=== PATIENT | female | born 1960 | race Caucasian/White ===

== ENCOUNTER → 2018-07-20 10:58 | Outpatient (CLI) | payer OTHER, SELFPAY ==
--- NOTE | 2018-07-20 | DI.MRI.S_ITS ---
PROCEDURE: MR HEAD/BRAIN WO CON INDICATIONS: MS TECHNIQUE: Noncontrast axial T1 spin echo, axial T2 fast spin echo, sagittal and axial FLAIR, coronal T2 fast spin echo, axial gradient echo, axial diffusion and ADC through the brain. COMPARISON: MR, BRAIN W/O CONTRAST, 12/22/2001, 10:56. [facility], MR, BRAIN WITHOUT CONTRAST, 05/21/2017, 12:03. FINDINGS: Image quality: Excellent. CSF Spaces: Basal cisterns are patent. No extra-axial fluid collections. Ventricles are normal in size and shape. Brain: Multiple areas of hyperintensity within the periventricular and subcortical white matter are identified. Overall, the appear unchanged in number. Several demonstrate minimal interval increases in size most notable in the right frontal lesion seen on series 7 image 21 currently measuring approximately 9 mm compared to 6 mm on prior exam. No intracranial masses or hemorrhage. Adair/white matter interface is normal. Brainstem appears normal. Diffusion-weighted images demonstrate no acute ischemic insult. No chronic ischemic insults. Normal intravascular flow voids are present. Skull and face: Calvarium has normal marrow signal. Orbits appear normal. Sinuses: Sinuses and mastoids are clear. IMPRESSION: 1. Multifocal periventricular hyperintensities as above with small interval increase in size as noted. Overall appearance remains most consistent with demyelinating disease. 2. Mild atrophy and chronic microvascular ischemic changes. Dictated by: Yulissa Riley M.D. on 07/20/2018 at 13:42 Approved by: Yulissa Riley M.D. on 07/20/2018 at 13:47
== END ==
PROVIDERS: PCP Specialist; Visit Provider Physician Assistant
DX: G35 Multiple sclerosis (principal)
CPT/HCPCS: 70551

== ENCOUNTER → 2019-08-19 07:51 | Outpatient (CLI) | payer OTHER, SELFPAY ==
--- NOTE | 2019-08-19 | DI.MRI.S_ITS ---
PROCEDURE: MR CERVICAL SPINE WO/W CON INDICATIONS: Multiple sclerosis TECHNIQUE: Noncontrast sagittal T1 spin echo and T2 fast spin echo, sagittal STIR, sagittal PD fast spin echo, foraminal oblique sagittal T2 fast spin echo, axial gradient echo or T2 fast spin echo through the cervical spine. After the administration of contrast, sagittal and axial T1 spin echo with fat saturation through the cervical spine. COMPARISON: [facility], , C-SPINE WITHOUT CONTRAST, 05/21/2017, 12:29. FINDINGS: Image quality: Excellent. Alignment and curvature: There is normal bony alignment. Marrow: Marrow demonstrates normal overall signal. Spinal cord: Visualized spinal cord is normal in size, but there is a pattern of being elevation of fluid signal in the cervical and visualized upper thoracic spine as was previously the case 05/21/17, consistent with extensive white matter lesions showing no evidence of focal enhancement on postcontrast imaging. . No cerebellar tonsillar herniation. Paraspinous soft tissues: No paravertebral masses or suspicious enhancement. C4-C5: Moderately severe degenerative disc disease with a chronic posterior transverse this would producing effacement of the anterior thecal sac, associated with mild to moderate spinal stenosis. C5-C6: Moderately severe degenerative disc disease with a small posterior transverse disc bulge. Only mild spinal stenosis is associated. C6-C7: Mild to moderate degenerative disc disease, slight posterior disc bulge,, minimal spinal stenosis. IMPRESSION: Relatively extensive white matter lesions are present within the cervical cord from the C2 level inferiorly extending into the thoracic cord, consistent with stable underlying multiple sclerosis. There is no associated abnormal enhancement, and no definite interval worsening has developed from the comparison study 05/21/17. Previously present moderate mid cervical degenerative disc disease extends into the lower third of the cervical spine, associated with mild to moderate spinal stenosis at C4-5 and no significant focal nerve root impingement is found.. Dictated by: Damian Du M.D. on 08/19/2019 at 14:36 Approved by: Damian Du M.D. on 08/19/2019 at 14:42
--- NOTE | 2019-08-19 | DI.MRI.S_ITS ---
PROCEDURE: MR HEAD/BRAIN WO CON INDICATIONS: Multiple sclerosis TECHNIQUE: Noncontrast sagittal and axial FLAIR, axial and coronal T2 fast spin echo, axial VIBE, axial gradient echo, axial diffusion and ADC through the brain. After the administration of contrast, axial and coronal VIBE with fat saturation through the brain. COMPARISON: [facility], MR, MR HEAD/BRAIN WO CON, 07/20/2018, 12:19. [facility], MR, BRAIN WITHOUT CONTRAST, 05/21/2017, 12:03. FINDINGS: Image quality: Excellent. CSF spaces: Ventricles are normal in size and shape. Basal cisterns are patent. No extra-axial fluid collections. Brain: No intracranial bleeds or mass effects. Adair-white matter interface appears intact. No no suspicious white matter lesions. Extensive gliosis related to multifocal periventricular and corpus callosal white matter lesions are present, a number of which are centripetal in their orientation. No mass effect is associated. No abnormal intracranial enhancement. Diffusion weighted images show no acute ischemic insults. Brainstem appears normal. Normal intravascular flow voids are present. Skull and face: Calvarial marrow signal is normal. Orbits appear normal. Sinuses: Sinuses and mastoids are clear. IMPRESSION: Stable appearance of multifocal bilateral presumed MS plaque in this clinical circumstance, without appreciable interval worsening over the prior year. Contrast enhancement was not utilized for this study. Dictated by: Damian Du M.D. on 08/19/2019 at 14:33 Approved by: Damian Du M.D. on 08/19/2019 at 14:36
== END ==
PROVIDERS: PCP Specialist; Visit Provider Psychiatry & Neurology Neurology
DX: G35 Multiple sclerosis (principal); M50.321 Other cervical disc degeneration at C4-C5 level; M48.02 Spinal stenosis, cervical region
CPT/HCPCS: 70551; 72156; A9579

== ENCOUNTER 2023-10-20 10:56 | Emergency (ER) | payer MEDICARE, SELFPAY ==
[2023-10-20 11:10] VITALS: BP 139/67; PULSE 90; RESP 18; TEMP 36.4; O2SAT 99; BMI 26.6
--- NOTE | 2023-10-20 11:16 | DI.RAD.S_ITS ---
PROCEDURE: XR ANKLE RT MIN 3V INDICATIONS: fall, ankle pain TECHNIQUE: 3 views of the ankle were acquired. COMPARISON: None. FINDINGS: Bones: There is slight prominence of the lateral mortise. No displaced fracture identified elsewhere. Heterogeneous demineralization and mild degenerative changes. Soft tissues: There may be soft tissue swelling. IMPRESSION: Possible slight prominence of the lateral mortise. No displaced fracture. If there is high concern for further derangement, consider MRI evaluation. Soft tissue swelling is present. Dictated by: Javier Serrano M.D. on 10/20/2023 at 11:59 Approved by: Javier Serrano M.D. on 10/20/2023 at 12:00
--- NOTE | 2023-10-20 11:55 | PC.NURSE ---
Pt is wheelchair bound x 9 years from MS. uses matt lift to get to toilet. states she fell off the toilet 4 days ago and hurt R ankle. Pain persisted and decided to come to ER. 2+ pedal pulse. Pt unable to move lower extremities at baseline however full sensation intact. mild swelling to lateral R malleolus and tender to touch. states she uses CBD oil for pain which has helped minimally. declined tylenol/ibu at this time.
--- NOTE | 2023-10-20 12:20 | ED.LOWEXIN ---
HPI - Extremity Injury (Lower) <Bambi Murry PA-C - Last Filed: 10/20/23 12:26> General Chief Complaint: Extremity Injury, Lower Stated Complaint: fall from toilet/ rolled ankle T-4 Time Seen by Provider: 10/20/23 11:47 Source: patient Mode of arrival: Wheelchair History of Present Illness HPI Narrative: Patient is a 63-year-old female with MS who uses a wheelchair and transfers using a lift. She is on Eliquis. She has recently moved to a new facility and is still becoming accustomed to the equipment and layout. She was attempting to shift her weight on the toilet when she actually fell off the toilet and rolled her right ankle. Did not hit her head. Complains of pain and swelling to the lateral aspect of the right ankle. It has not gotten better in the 4 days since. She has tried CBD oil without improvement in pain. Related Data Allergies Allergy/AdvReac Type Severity Reaction Status Date / Time iodine [IODINE] Allergy Intermediate HIVES Verified 10/20/23 11:10 Review of Systems <Bambi Murry PA-C - Last Filed: 10/20/23 12:26> Review of Systems ROS Unobtainable: All systems reviewed & are unremarkable except as noted in HPI and below Patient History <Bambi Murry PA-C - Last Filed: 10/20/23 12:26> Social History Smoking Status: Never smoker Smoking Status: Never smoker alcohol intake frequency: a few times a week Substance Use Type: marijuana Exam <Bambi Murry PA-C - Last Filed: 10/20/23 12:26> Narrative Exam Narrative: GENERAL: 63 year old patient appears stated age. Well-developed patient, in no acute distress. NEURO: AOx3. HEAD: Atraumatic. Normocephalic. EYES: Pupils equal round and reactive. Extraocular motions intact. No scleral icterus. No injection or drainage. ENT: Nose without bleeding or purulent drainage. Airway patent. RESPIRATORY: No distress or increased work of breathing EXTREMITIES: Mild edema of the right ankle. Tenderness over the lateral malleolus. SKIN: No rash or erythema of visible areas Initial Vital Signs Initial Vital Signs: Vital Signs Temperature 97.5 F L 10/20/23 11:10 Pulse Rate 90 10/20/23 11:10 Respiratory Rate 18 10/20/23 11:10 Blood Pressure 139/67 10/20/23 11:10 Pulse Oximetry 99 10/20/23 11:10 Oxygen Delivery Method Room Air 10/20/23 11:10 <Maty Sauer MD - Last Filed: 10/21/23 11:18> Initial Vital Signs Initial Vital Signs: Vital Signs Temperature 97.5 F L 10/20/23 11:10 Pulse Rate 90 10/20/23 11:10 Respiratory Rate 18 10/20/23 11:10 Blood Pressure 139/67 10/20/23 11:10 Pulse Oximetry 99 10/20/23 11:10 Oxygen Delivery Method Room Air 10/20/23 11:10 Course <Bambi Murry PA-C - Last Filed: 10/20/23 12:26> Orders Ordered: ED Orders 10/20/23 11:16 XR ankle RT min 3V Stat Vital Signs Vital signs: Vital Signs - 8 hr 10/20/23 11:10 Temperature 97.5 F L Pulse Rate 90 Respiratory Rate 18 Blood Pressure 139/67 Pulse Oximetry 99 Oxygen Delivery Method Room Air <Maty Sauer MD - Last Filed: 10/21/23 11:18> Orders Ordered: ED Orders 10/20/23 11:16 XR ankle RT min 3V Stat Vital Signs Vital signs: Vital Signs - 8 hr 10/20/23 11:10 Temperature 97.5 F L Pulse Rate 90 Respiratory Rate 18 Blood Pressure 139/67 Pulse Oximetry 99 Oxygen Delivery Method Room Air MDM - Extremity Injury (Lower) <Bambi Murry PA-C - Last Filed: 10/20/23 12:26> Imaging Data Extremity x-ray #1: Radiologist's Impression: PROCEDURE: XR ANKLE RT MIN 3V INDICATIONS: fall, ankle pain TECHNIQUE: 3 views of the ankle were acquired. COMPARISON: None. FINDINGS: Bones: There is slight prominence of the lateral mortise. No displaced fracture identified elsewhere. Heterogeneous demineralization and mild degenerative changes. Soft tissues: There may be soft tissue swelling. IMPRESSION: Possible slight prominence of the lateral mortise. No displaced fracture. If there is high concern for further derangement, consider MRI evaluation. Soft tissue swelling is present. Dictated by: Javier Serrano M.D. on 10/20/2023 at 11:59 Approved by: Javier Serrano M.D. on 10/20/2023 at 12:00 [facility] Narrative Medical decision making narrative: Multiple etiologies for patient's symptoms considered including, but not limited to: Ankle sprain, fracture, dislocation Patient is nonweightbearing, uses a wheelchair and Xuan lift due to MS. She would tenderness over her lateral right ankle after a fall from the toilet 4 days ago. She did not hit her head. X-ray shows slight increased prominence of the lateral mortise without obvious fracture or dislocation. Discussed findings with the patient. Given that she does not weight bear, we will defer further imaging or investigation after a trial of conservative therapy. Advised ice, rest, elevation, Tylenol. Offered compression bandage but patient declines, stating this will just irritate her. She has been most of her time lying in bed and can keep elevated. She can follow up with primary care if not improving after 2 weeks of conservative therapy. Patient's symptoms improved over duration of stay with above-stated therapies. Findings and discharge diagnosis discussed with patient/family followed by verbalization of understanding Return precautions discussed with patient/family whom verbalize understanding of diagnosis and plan Discharge Plan Departure Patient Disposition: Home Clinical Impression: Ankle sprain and strain Instructions: DI for Ankle Sprain Activity Restrictions/Additional Instructions: *You have been diagnosed with right ankle sprain. There is no evidence of fracture on your x-ray. I would advise rest, elevation, ice. If your ankle is not improving after 1-2 weeks of conservative therapy, please contact your primary care provider for reassessment. We discussed using an Rojas wrap to provide some support but given that you do not bear weight on the leg, is also fine to not ice it. If you are having ongoing pain, you could try using an Rojas wrap or another kind of brace. *What to do: *Please continue to take your regular medications as directed. [ ] New medication prescriptions sent to your pharmacy: [ ] [ ] New medication written as a paper prescription [x] No new medications given *Please follow up with your primary care provider in 2-3 days, call for an appointment. Let them know you were seen in the Emergency Department and that we ask that you be seen in follow up. We will electronically transmit a record of today's note if your PCP is in our system *If you do not have a primary care provider please contact the [facility] Resource line at [phone]. They will ask some questions about your medical history and help get you set up with a doctor in the community. *Return to Emergency Department if you should have any new, worsening or concerning symptoms, such as [fever greater than 101 F, shaking chills, worsening pain, persistent vomiting or other concerning symptoms]. Referrals: Ian Gooden FNP-C [Primary Care Provider] - Stand Alone Forms: Patient Portal/API ED Sign-out <Maty Sauer MD - Last Filed: 10/21/23 11:18> Cosign ED Attending Cosignature Attestation: I was immediately available in the department for consultation throughout this patient's visit. Maty Sauer MD
== END 2023-10-20 12:23 | disposition home or self-care (01) ==
PROVIDERS: Emergency Provider Physician Assistant; PCP Nurse Practitioner
DX: S93.401A Sprain of unspecified ligament of right ankle, initial encounter (principal); S96.911A Strain of unspecified muscle and tendon at ankle and foot level, right foot, initial encounter; I05.0 Rheumatic mitral stenosis; W18.11XA Fall from or off toilet without subsequent striking against object, initial encounter
CPT/HCPCS: 73610; 99283

== ENCOUNTER → 2023-11-05 10:21 | Outpatient (CLI) | payer MEDICARE, SELFPAY ==
--- NOTE | 2023-11-05 10:26 | DI.RAD.S_ITS ---
PROCEDURE: XR TIBIA FUBULA RT 2V INDICATIONS: LEG INJURY TECHNIQUE: 2 views of the tibia and fibula were acquired. COMPARISON: None. FINDINGS: Bones: Comminuted, displaced fracture involving the proximal right tibial diametaphysis with medial angulation of the distal fracture fragment. There is also a mildly displaced fracture involving the head of the right fibula. Soft tissues: No suspicious soft tissue calcifications or masses. IMPRESSION: Comminuted, displaced fracture of the proximal right tibial diametaphysis. Mildly displaced fracture of the right fibular head. Dictated by: Kaveh Ring M.D. on 11/05/2023 at 14:08 Approved by: Kaveh Ring M.D. on 11/05/2023 at 14:09
== END ==
LOC: RAD 10:22
PROVIDERS: PCP Nurse Practitioner; Referring Provider Nurse Practitioner; Visit Provider Nurse Practitioner
DX: S82.191A Other fracture of upper end of right tibia, initial encounter for closed fracture (principal); S82.831A Other fracture of upper and lower end of right fibula, initial encounter for closed fracture; X58.XXXA Exposure to other specified factors, initial encounter
CPT/HCPCS: 73590

== ENCOUNTER 2023-11-09 10:33 | Emergency (ER) | payer MEDICARE, SELFPAY ==
[2023-11-09] VITALS (7 sets, daily range): BP systolic 164–178; BP diastolic 77–88; PULSE 64–77; RESP 16–20; TEMP 36.3; O2SAT 98–100; BMI 28.6
--- NOTE | 2023-11-09 11:06 | PC.NURSE ---
Pt reports initially falling in September and twisting her right foot underneath herself. She is taking marijuana to control her pain, reports minimal pain today 2/10 right calf through right lateral ankle. Pedal pulse palpable, no lacerations/ecchymosis. There is swelling. Pt in a W/C due to MS.
--- NOTE | 2023-11-09 11:51 | DI.US.S_ITS ---
PROCEDURE: US PERIPH VENOUS LOW EXTREM RT INDICATIONS: EDEMA TECHNIQUE: Real-time imaging, as well as color and pulse Doppler interrogation, were performed of the lower extremity deep veins from the inguinal ligament to the popliteal fossa, with documentation of the visualized calf veins. COMPARISON: None. FINDINGS: The common femoral, femoral, popliteal, and the visualized calf veins are normally compressible, and free of intraluminal thrombus. Color and pulse Doppler demonstrate normal phasic intraluminal flow. There is normal augmentation response to distal compression maneuver. IMPRESSION: No findings of lower extremity deep venous thrombosis. Dictated by: Romie Collins M.D. on 11/09/2023 at 13:27 Approved by: Romie Collins M.D. on 11/09/2023 at 13:27
--- NOTE | 2023-11-09 12:08 | ED.RECABL ---
HPI - Recheck/Abnormal Lab/Rx <Emilia Sloan PA-C - Last Filed: 11/09/23 15:05> General Chief Complaint: Recheck/Abnormal Lab/Rx Stated Complaint: needs a boot commuted displaced sent by pcp Time Seen by Provider: 11/09/23 11:31 Source: patient Mode of arrival: Wheelchair History of Present Illness HPI narrative: 63-year-old female with past medical history multiple sclerosis, pulmonary embolism presents to the ED with right-sided leg pain. Patient was seen in the ED on 10/20/2023 following a fall from the toilet that caused a right ankle injury, ankle x-ray did not show fractures or dislocations, patient discharged home. Patient continued to have right-sided leg pain ranging from her knee on down. A tib-fib x-ray from 11/05/2023 that was ordered by patient's PCP shows a comminuted, displaced fracture of the proximal right tibial diametaphysis. Mildly displaced fracture of the right fibular head. patient is here today due to continued pain in the right leg. Denies numbness, tingling, weakness. However, patient's sensations are somewhat distorted from the multiple sclerosis. Patient is wheelchair-bound at baseline due to multiple sclerosis. Patient lives at [facility] living across the street from the ED. Related Data Allergies Allergy/AdvReac Type Severity Reaction Status Date / Time iodine [IODINE] Allergy Intermediate HIVES Verified 11/09/23 10:50 Review of Systems <Emilia Sloan PA-C - Last Filed: 11/09/23 15:05> Constitutional Constitutional: Denies chills, Denies fatigue, Denies fever(s), Denies frequent falls, Denies lethargy and Denies weakness Eyes Eyes: Denies change in vision, Denies eye discharge, Denies irritation and Denies loss of vision ENT Ears, Nose, Mouth, and Throat: Denies change in voice, Denies dizziness, Denies neck pain, Denies sore throat and Denies throat swelling Cardiovascular Cardiovascular: Denies chest pain, Denies irregular heart rhythm, Denies lightheadedness, Denies palpitations, Denies dyspnea, Denies dyspnea on exertion and Denies orthopnea Respiratory Respiratory: Denies cough, Denies dyspnea, Denies dyspnea on exertion and Denies wheezing Gastrointestinal Gastrointestinal: Denies abdominal pain, Denies change in bowel habits, Denies diarrhea, Denies nausea and Denies vomiting Musculoskeletal Musculoskeletal: Denies neck pain and Denies numbness Comments: Right leg pain Integumentary/Breasts Skin/Breast: Denies pruritus, Denies erythema, Denies rash and Denies wounds Neurologic Neurologic: Denies behavioral changes, Denies confusion, Denies dizziness, Denies frequent falls, Denies loss of vision, Denies numbness and Denies weakness Psychiatric Psychiatric: Denies anxiety, Denies behavioral changes, Denies confusion, Denies depression, Denies homicidal ideation and Denies suicidal ideation Endocrine Endocrine: Denies fatigue, Denies flushing and Denies palpitations Hematologic/Lymphatic Hematologic/Lymphatic: Denies easy bruising Allergic/Immunologic Allergic/Immunologic: Denies urticaria, Denies throat swelling and Denies wheezing Patient History <Emilia Sloan PA-C - Last Filed: 11/09/23 15:05> Social History Smoking Status: Never smoker Smoking Status: Never smoker alcohol intake frequency: a few times a week Substance Use Type: marijuana Exam <Emilia Sloan PA-C - Last Filed: 11/09/23 15:05> Narrative Exam Narrative: Const General:?cooperative, healthy appearing and comfortable;Patient is wheelchair-bound due to multiple sclerosis HENMT Head:?normal to inspection Ears:?hearing grossly normal bilaterally Nose:?external nose normal Face and sinus:?normal facial exam and sinuses nontender Mouth:?oral mucosae normal Throat:?posterior oropharynx normal Eyes General:?appearance normal, both eyes and all related structures Neck Neck:?normal visual inspection and no lymphadenopathy noted Resp Effort & Inspection:?normal respiratory effort Auscultation:?clear to auscultation bilaterally Cardio Rate:?regular rate Rhythm:?regular rhythm Musculoskeletal Diffuse tenderness to palpation of the right lower leg. Minimal swelling. Neurovascularly at baseline given MS. Patient is wheelchair-bound at baseline. Neuro General:?patient alert, patient awake and patient oriented x3 Initial Vital Signs Initial Vital Signs: Vital Signs Pulse Rate 70 11/09/23 10:47 Pulse Oximetry 100 11/09/23 10:47 <Xena Boykin DO - Last Filed: 11/09/23 18:21> Initial Vital Signs Initial Vital Signs: Vital Signs Pulse Rate 70 11/09/23 10:47 Pulse Oximetry 100 11/09/23 10:47 Course <Emilia Sloan PA-C - Last Filed: 11/09/23 15:05> Orders Ordered: ED Orders 11/09/23 11:51 US periph venous low extrem rt Stat Discontinued Medications Ibuprofen (Ibuprofen 400 Mg Tablet) 800 mg PO NOW ONE Stop: 11/09/23 11:52 Last Admin: 11/09/23 12:43 Dose: 800 mg Documented By: SPF Vital Signs Vital signs: Vital Signs - 8 hr 11/09/23 10:47 11/09/23 10:48 11/09/23 10:48 Temperature 97.3 F L Pulse Rate 70 68 69 Respiratory Rate 16 Blood Pressure 178/88 H Pulse Oximetry 100 100 99 Oxygen Delivery Method Room Air 11/09/23 10:48 11/09/23 11:00 11/09/23 11:30 Temperature Pulse Rate 64 68 Respiratory Rate Blood Pressure 178/88 H Pulse Oximetry 99 98 Oxygen Delivery Method 11/09/23 12:00 11/09/23 12:30 11/09/23 14:07 Temperature Pulse Rate 65 77 74 Respiratory Rate 20 Blood Pressure 164/77 H Pulse Oximetry 98 98 99 Oxygen Delivery Method Room Air Room Air Room Air <Xena Boykin DO - Last Filed: 11/09/23 18:21> Orders Ordered: ED Orders 11/09/23 11:51 US periph venous low extrem rt Stat Discontinued Medications Ibuprofen (Ibuprofen 400 Mg Tablet) 800 mg PO NOW ONE Stop: 11/09/23 11:52 Last Admin: 11/09/23 12:43 Dose: 800 mg Documented By: SPF Vital Signs Vital signs: Vital Signs - 8 hr 11/09/23 10:47 11/09/23 10:48 11/09/23 10:48 Temperature 97.3 F L Pulse Rate 70 68 69 Respiratory Rate 16 Blood Pressure 178/88 H Pulse Oximetry 100 100 99 Oxygen Delivery Method Room Air 11/09/23 10:48 11/09/23 11:00 11/09/23 11:30 Temperature Pulse Rate 64 68 Respiratory Rate Blood Pressure 178/88 H Pulse Oximetry 99 98 Oxygen Delivery Method 11/09/23 12:00 11/09/23 12:30 11/09/23 14:07 Temperature Pulse Rate 65 77 74 Respiratory Rate 20 Blood Pressure 164/77 H Pulse Oximetry 98 98 99 Oxygen Delivery Method Room Air Room Air Room Air MDM - Recheck/Abnormal Lab/Rx <Emilia Sloan PA-C - Last Filed: 11/09/23 15:05> MDM Narrative Medical decision making narrative: 63-year-old female with past medical history multiple sclerosis, pulmonary embolism presents to the ED with right-sided leg pain. Given patient's fractures, consulted ortho specialist Dr. Shaw from [facility]. He recommends a knee immobilizer until patient can see him in clinic on 11/12/2023. Discussed findings with patient. Recommend continued use of ibuprofen for pain. Fitted patient with a knee immobilizer. She agrees to see Dr. Shaw on the . ED return precautions discussed with patient. Patient verbalized understanding. Medical records reviewed: Yes Discharge Plan Departure Patient Disposition: Home Clinical Impression: Fracture, tibia and fibula, proximal Qualifiers: Encounter type: subsequent encounter Fracture type: closed Laterality: right Fracture healing: with nonunion Qualified Code(s): S82.101K - Unspecified fracture of upper end of right tibia, subsequent encounter for closed fracture with nonunion Instructions: Fibula Shaft Fracture Activity Restrictions/Additional Instructions: You were evaluated in the ED today for leg pain. It appears from the most recent x-ray which was 4 days ago, that you have a comminuted fracture of the tibia and fibula in the right leg. We consulted Dr. Shaw from [facility], he recommends a knee immobilizer until you can see him in clinic on 11/12/2023. Their phone number is [phone] and their address is [address] [place] [address]. Return to the ED if you have worsening symptoms, numbness, tingling, weakness. You may continue to take ibuprofen and Tylenol for pain control. Referrals: Ian Gooden FNP-C [Primary Care Provider] - Stand Alone Forms: Patient Portal/API ED Sign-out <Xena Boykin DO - Last Filed: 11/09/23 18:21> Cosign ED Attending Cosignature Attestation: I was immediately available in the department for consultation. Case was discussed, images were reviewed consultation with Orthopedic surgery patient has fracture likely for several weeks. Plan for knee immobilizer which patient felt much more comfortable with and follow up with Orthopedic surgery.
[2023-11-09] MEDS: IBUPROFEN 400 MG TABLET 800 MG PO (12:43)
== END 2023-11-09 14:23 | disposition home or self-care (01) ==
PROVIDERS: Emergency Provider Student in an Organized Health Care Education/Training Program; PCP Nurse Practitioner
DX: S82.191A Other fracture of upper end of right tibia, initial encounter for closed fracture (principal); S82.831A Other fracture of upper and lower end of right fibula, initial encounter for closed fracture; W18.11XA Fall from or off toilet without subsequent striking against object, initial encounter
CPT/HCPCS: 29530; 93971; 99283; 99284

== ENCOUNTER → 2023-11-11 06:11 | Outpatient (ROUT) | payer MEDICARE, SELFPAY ==
[2023-11-11 08:12] LABS: Cholesterol 168 mg/dL (140-199); HDL Cholesterol 49 mg/dL (40-60); LDL Cholesterol Calculated 103 mg/dL (<100); Triglycerides 80 mg/dL (35-150)
== END ==
PROVIDERS: PCP Nurse Practitioner; Visit Provider Nurse Practitioner
DX: I10 Essential (primary) hypertension (principal)
CPT/HCPCS: 36415; 80061

== ENCOUNTER → 2024-01-20 11:23 | Outpatient (ROUT) | payer MEDICARE, SELFPAY ==
[2024-01-20 11:38] LABS: Appearance Urine UA SL CLOUDY; Bilirubin Urine UA NEGATIVE (NEGATIVE); Color Urine UA YELLOW; Glucose Urine UA NEGATIVE (Negative); Ketones Urine UA NEGATIVE (NEGATIVE); Leukocyte Esterase Urine UA 1+ (NEGATIVE); Nitrite Urine UA POSITIVE (Negative); Occult Blood Urine UA NEGATIVE (Negative); Protein Urine UA NEGATIVE (Negative); Urobilinogen Urine UA 0.2 E.U./dL (0.2)
[2024-01-20 11:40] LABS: Urine Volume 10mL (spun); pH Urine UA 6.5 (4.5-8.0)
[2024-01-20 12:21] LABS: Bacteria Urine Many (>30); Culture Indicated Urine Specimen Cultured; RBC Urine None Seen (0-5/HPF); Squamous Epithelial Cell Urine 5-10 /HPF (0-5/HPF); WBC Urine 5-10/HPF (0-5/HPF)
== END ==
PROVIDERS: PCP Nurse Practitioner; Visit Provider Internal Medicine
DX: M62.3 Immobility syndrome (paraplegic) (principal); M62.81 Muscle weakness (generalized)
CPT/HCPCS: 81001; 87077; 87086; 87186

== ENCOUNTER → 2024-03-23 06:06 | Outpatient (ROUT) | payer MEDICARE, SELFPAY ==
[2024-03-23 07:43] LABS: BUN Creatinine Ratio 21.7 (6-22); Blood Urea Nitrogen 15 mg/dL (7-17); Calcium 9.9 mg/dL (8.4-10.2); Carbon Dioxide 24 mmol/L (22-32); Chloride 109 mmol/L (98-107); Estimated Glomerular Filt Rate > 60 mL/min (>60); Glucose 99 mg/dL (80-110); HEMOLYSIS < 15 (0-50); Magnesium 2.1 mg/dL (1.6-2.3); Potassium 4.7 mmol/L (3.4-5.1); Sodium 139 mmol/L (137-145)
[2024-03-23 07:53] LABS: Hematocrit 40.6 % (36-46); Hemoglobin 13.5 g/dL (12.0-16.0); Mean Corpuscular HGB Conc 33.4 % (30-36); Mean Corpuscular Hemoglobin 30.1 PG (26-34); Mean Corpuscular Volume 90.3 fL (80-100); Platelet Count 199 X10^3/uL (150-400); Red Cell Distribution Width 14.7 % (11.6-14.8); White Blood Cell Count 6.6 X10^3/uL (4.5-11.0)
== END ==
PROVIDERS: PCP Nurse Practitioner; Visit Provider Registered Nurse
DX: R25.2 Cramp and spasm (principal)
CPT/HCPCS: 36415; 80048; 83735; 85027

== ENCOUNTER → 2024-08-25 06:10 | Outpatient (ROUT) | payer SELFPAY ==
[2024-08-25 07:25] LABS: BUN Creatinine Ratio 17.3 (6-22); Blood Urea Nitrogen 13 mg/dL (7-17); Calcium 10.6 mg/dL (8.4-10.2); Carbon Dioxide 26 mmol/L (22-32); Chloride 105 mmol/L (98-107); Estimated Glomerular Filt Rate > 60 mL/min (>60); Glucose 117 mg/dL (80-110); HEMOLYSIS < 15 (0-50); Magnesium 1.8 mg/dL (1.6-2.3); Sodium 135 mmol/L (137-145)
== END ==
PROVIDERS: PCP Nurse Practitioner; Visit Provider Registered Nurse
DX: I10 Essential (primary) hypertension (principal)
CPT/HCPCS: 36415; 80048; 83735

== ENCOUNTER → 2024-09-07 12:03 | Outpatient (CLI) | payer MEDICARE, OTHER, SELFPAY ==
--- NOTE | 2024-09-07 | DI.MG.S_ITS ---
BILATERAL DIGITAL SCREENING MAMMOGRAM 3D/2D WITH CAD: 09/07/2024 CLINICAL: Routine screening. Comparison is made to exams dated: 04/27/2018 mammogram and 12/23/2016 mammogram - [facility]. The breasts are almost entirely fatty (category a/<25% glandular tissue). Current study was also evaluated with a Computer Aided Detection (CAD) system. No significant masses, calcifications, or other findings are seen in either breast. There has been no significant interval change. IMPRESSION: NEGATIVE There is no mammographic evidence of malignancy. A 1 year screening mammogram is recommended. Based on the Tyrer Cuzick model (a risk assessment model) the patient's lifetime risk is 3.6% and her 10 year risk is 1.7%. According to the ACR, ACS, and NCCN guidelines, an annual breast MRI exam along with mammogram is recommended if the patient's lifetime risk is 20% or greater. This exam was interpreted at Station ID: [id number]. NOTE: For mammograms, a report in lay terms will be sent to the patient. Approximately 15% of breast malignancies will not be visualized mammographically. In the management of a palpable breast mass, a negative mammogram must not discourage biopsy of a clinically suspicious lesion. Electronically Signed By: Shelby king/aicha:09/07/2024 16:23:27 letter sent: Normal Exam ACR BI-RADS Category 1: Negative
== END ==
LOC: MAMMO 12:06
PROVIDERS: PCP Nurse Practitioner; Referring Provider Nurse Practitioner; Visit Provider Nurse Practitioner
DX: Z12.31 Encounter for screening mammogram for malignant neoplasm of breast (principal); R92.313 Mammographic fatty tissue density, bilateral breasts
CPT/HCPCS: 77063; 77067

== ENCOUNTER → 2024-10-31 10:54 | Outpatient (ROUT) | payer MEDICARE, OTHER, SELFPAY ==
[2024-10-31 11:32] LABS: Appearance Urine UA CLOUDY; Bilirubin Urine UA NEGATIVE (NEGATIVE); Color Urine UA YELLOW; Glucose Urine UA NEGATIVE (Negative); Ketones Urine UA NEGATIVE (NEGATIVE); Leukocyte Esterase Urine UA 2+ (NEGATIVE); Nitrite Urine UA POSITIVE (Negative); Occult Blood Urine UA NEGATIVE (Negative); Protein Urine UA NEGATIVE (Negative); Urobilinogen Urine UA 0.2 E.U./dL (0.2)
[2024-10-31 11:36] LABS: Urine Volume 10mL (spun)
[2024-10-31 11:37] LABS: Bacteria Urine Many (>30); Culture Indicated Urine Specimen Cultured; RBC Urine None Seen (0-5/HPF); Squamous Epithelial Cell Urine 1-5 /HPF (0-5/HPF); WBC Urine 5-10/HPF (0-5/HPF)
== END ==
PROVIDERS: PCP Nurse Practitioner; Visit Provider Registered Nurse
DX: R35.0 Frequency of micturition (principal)
CPT/HCPCS: 81001; 87077; 87086

== ENCOUNTER → 2024-12-21 06:24 | Outpatient (ROUT) | payer MEDICARE, OTHER, SELFPAY ==
[2024-12-21 08:21] LABS: Hematocrit 39.7 % (36-46); Hemoglobin 13.5 g/dL (12.0-16.0); Mean Corpuscular HGB Conc 34.1 % (30-36); Mean Corpuscular Hemoglobin 30.5 PG (26-34); Mean Corpuscular Volume 89.4 fL (80-100); Platelet Count 268 X10^3/uL (150-400); Red Blood Cell Count 4.44 X10^6/uL (4.0-5.2); Red Cell Distribution Width 14.2 % (11.6-14.8); White Blood Cell Count 8.7 X10^3/uL (4.5-11.0)
[2024-12-21 08:36] LABS: BUN Creatinine Ratio 14.9 (6-22); Blood Urea Nitrogen 11 mg/dL (7-17); Calcium 10.2 mg/dL (8.4-10.2); Carbon Dioxide 25 mmol/L (22-32); Chloride 104 mmol/L (98-107); Cholesterol 179 mg/dL (140-199); Estimated Glomerular Filt Rate > 60 mL/min (>60); Glucose 105 mg/dL (70-99); HDL Cholesterol 33 mg/dL (40-60); HEMOLYSIS < 15 (0-50); LDL Cholesterol Calculated 126 mg/dL (<100); Sodium 137 mmol/L (137-145); Triglycerides 102 mg/dL (35-150)
== END ==
PROVIDERS: PCP Nurse Practitioner; Visit Provider Registered Nurse
DX: I10 Essential (primary) hypertension (principal); R06.9 Unspecified abnormalities of breathing; Z86.718 Personal history of other venous thrombosis and embolism
CPT/HCPCS: 36415; 80048; 80061; 85027

== ENCOUNTER → 2024-12-28 12:20 | Outpatient (ROUT) | payer MEDICARE, OTHER, SELFPAY ==
[2024-12-28 12:34] LABS: Appearance Urine UA SL CLOUDY; Bilirubin Urine UA NEGATIVE (NEGATIVE); Color Urine UA YELLOW; Glucose Urine UA NEGATIVE (Negative); Ketones Urine UA NEGATIVE (NEGATIVE); Leukocyte Esterase Urine UA 3+ (NEGATIVE); Nitrite Urine UA NEGATIVE (Negative); Occult Blood Urine UA NEGATIVE (Negative); Protein Urine UA NEGATIVE (Negative); Specific Gravity Urine UA <=1.005 (1.000-1.035); Urobilinogen Urine UA 0.2 E.U./dL (0.2)
[2024-12-28 12:36] LABS: Urine Volume 10mL (spun)
[2024-12-28 12:38] LABS: RBC Urine None Seen (0-5/HPF)
[2024-12-28 12:39] LABS: Bacteria Urine None Seen; Culture Indicated Urine Specimen Cultured; Squamous Epithelial Cell Urine 1-5 /HPF (0-5/HPF); WBC Urine 10-30/HPF (0-5/HPF)
== END ==
LOC: LAB 12:23
PROVIDERS: PCP Nurse Practitioner; Visit Provider Student in an Organized Health Care Education/Training Program
DX: N39.0 Urinary tract infection, site not specified (principal)
CPT/HCPCS: 81001; 87077; 87086; 87186

== ENCOUNTER 2024-12-31 22:16 | Emergency (ER) | payer MEDICARE, OTHER, SELFPAY ==
--- NOTE | 2024-12-31 22:22 | EKG_ITS ---
[address] [address] Test Date: 2024-12-31 Pat Name: Marquita Duong Department: [facility] Room: Gender: Female Assistant [employer]: : 1960 Requested By: Order Number: [id number] Reading MD: Derrek Castillo MD Measurements Intervals [place] Rate: 122 P: 55 IA: 142 QRS: 44 QRSD: 80 T: 48 QT: 326 QTc: 464 Interpretive Statements Sinus tachycardia Electronically Signed On 01-01-2025 8:43:33 PDT by Derrek Castillo MD
[2024-12-31 22:24] VITALS: BP 170/79; PULSE 121; RESP 16; TEMP 37.2; O2SAT 97; BMI 33.0
[2024-12-31 22:25] VITALS: PULSE 122; O2SAT 91
[2024-12-31 22:27] VITALS: BP 168/74; PULSE 121; RESP 18; O2SAT 91
[2024-12-31 22:30] VITALS: BP 158/70; PULSE 121; RESP 16; O2SAT 91
[2024-12-31] MEDS: SODIUM CHLORIDE 0.9% 1,000 ML 1000 ML IV ×2 (22:41→23:21)
[2024-12-31 22:50] LABS: Add Manual Diff / Slide Review NO; Basophils Absolute Auto 100 /uL (0-100); Basophils Percent Auto 0.3 % (0-2); Eosinophils Absolute Auto 0 /uL (0-450); Eosinophils Percent Auto 0.1 % (2-4); Hematocrit 45.3 % (36-46); Hemoglobin 15.1 g/dL (12.0-16.0); Lymphocytes Absolute Auto 300 /uL (1100-4500); Lymphocytes Percent Auto 1.7 % (25-40); Mean Corpuscular HGB Conc 33.3 % (30-36); Mean Corpuscular Hemoglobin 29.9 PG (26-34); Mean Corpuscular Volume 89.8 fL (80-100); Monocytes Absolute Auto 300 /uL (0-900); Monocytes Percent Auto 1.8 % (3-14); Neutrophils Absolute Auto 18300 /uL (1500-7000); Neutrophils Percent Auto 96.1 % (50-75); Platelet Count 400 X10^3/uL (150-400); Red Blood Cell Count 5.05 X10^6/uL (4.0-5.2); Red Cell Distribution Width 14.5 % (11.6-14.8)
[2024-12-31 22:52] LABS: Alanine Aminotransferase 39 IU/L (<35); Albumin 4.2 g/dL (3.5-5.0); Albumin Globulin Ratio 1.3 (1.0-2.8); Alkaline Phosphatase 107 U/L (38-126); Aspartate Aminotransferase 31 IU/L (14-36); BUN Creatinine Ratio 12.3 (6-22); Bilirubin Total 0.7 mg/dL (0.2-1.3); Blood Urea Nitrogen 8 mg/dL (7-17); Calcium 10.3 mg/dL (8.4-10.2); Carbon Dioxide 24 mmol/L (22-32); Chloride 104 mmol/L (98-107); Creatine Kinase 25 U/L (30-135); Estimated Glomerular Filt Rate > 60 mL/min (>60); Globulin 3.3 g/dL (1.7-4.1); Glucose 165 mg/dL (70-99); HEMOLYSIS < 15 (0-50); Potassium 3.9 mmol/L (3.4-5.1); Sodium 136 mmol/L (137-145); Total Protein 7.5 g/dL (6.3-8.2)
[2024-12-31 22:53] LABS: Lactate (Lactic Acid) 1.3 mmol/L (0.7-2.1)
--- NOTE | 2024-12-31 22:56 | ED.GENADULT ---
HPI - General Adult General Chief complaint: Weakness Stated complaint: N/V weakness Time Seen by Provider: 12/31/24 22:35 Source: patient and EMS Mode of arrival: EMS History of Present Illness HPI narrative: 64-year-old female, resident of [facility], has had prior urinary infections, prior kidney stones, now day 2 oral nitrofurantoin antibiotic for recent diagnosis of urinary tract infection from a clinic visit a few days ago with primary care provider, urine culture apparently was positive, then prescription was called in, she is now on her 2nd day of nitrofurantoin. She is having nausea and nonbloody emesis. No abdominal pain or flank pain. She denies cough chest pain shortness of breath. Related Data Previous Rx's Medication Instructions Recorded cefdinir 300 mg capsule 300 mg PO BID 10 days #20 caps 01/01/25 cefdinir 300 mg capsule 300 mg PO BID 10 days #20 caps 01/01/25 Allergies Allergy/AdvReac Type Severity Reaction Status Date / Time iodine [IODINE] Allergy Intermediate HIVES Verified 11/09/23 10:50 Patient History Social History Smoking Status: Never smoker Smoking Status: Never smoker alcohol intake frequency: a few times a week Exam Narrative Exam Narrative: GENERAL: Well-developed patient, in mild distress. HEAD: Atraumatic. Normocephalic. EYES: Pupils equal round and reactive. Extraocular motions intact. No scleral icterus. No injection or drainage. ENT: Nose without bleeding, purulent drainage. Throat without erythema, tonsillar hypertrophy or exudate. Airway patent. NECK: Trachea midline. Non tender CARDIOVASCULAR: Regular rate and rhythm without murmurs, gallops, or rubs. RESPIRATORY: Clear to auscultation. Breath sounds equal bilaterally. No wheezes, rales, or rhonchi. GASTROINTESTINAL: Abdomen soft, non-tender, nondistended. EXTREMITIES: No edema or joint tenderness. BACK: Nontender without deformity or crepitance. No flank tenderness. NEURO: AOx3. Motor functions grossly nonfocal SKIN: No rash or erythema of visible areas Initial Vital Signs Initial Vital Signs: Vital Signs Temperature 99 F 12/31/24 22:24 Pulse Rate 121 H 12/31/24 22:24 Respiratory Rate 16 12/31/24 22:24 Blood Pressure 170/79 H 12/31/24 22:24 Pulse Oximetry 97 12/31/24 22:24 Oxygen Delivery Method Room Air 12/31/24 22:24 Course Orders Ordered: ED Orders 12/31/24 22:15 Complete Blood Count AUTO DIFF Stat Comprehensive Metabolic Panel Stat Lactate (Lactic Acid) Stat Procalcitonin Stat Troponin & CK Cardiac Panel Stat 12/31/24 22:22 EKG-12 Lead Stat 12/31/24 22:40 Urine Culture Stat Urine Microscopic Stat 12/31/24 23:01 CT abdomen pelvis wo con Stat Discontinued Medications Sodium Chloride (Normal Saline 0.9%) 1,000 mls @ 1,000 mls/hr IV BOLUS ONE Stop: 12/31/24 23:34 Last Infusion: 12/31/24 23:21 Dose: Infused Documented By: Admin: 12/31/24 22:41 Dose: 1,000 mls/hr Documented By: NEETA Sodium Chloride (Normal Saline 0.9%) 1,000 mls @ 1,000 mls/hr IV BOLUS ONE Stop: 01/01/25 00:01 Last Infusion: 01/01/25 00:50 Dose: Infused Documented By: Admin: 12/31/24 23:21 Dose: 1,000 mls/hr Documented By: NEETA Ceftriaxone Sodium 1,000 mg/ (Sodium Chloride) 100 mls @ 200 mls/hr IV NOW ONE Stop: 12/31/24 23:07 Last Infusion: 12/31/24 23:42 Dose: Infused Documented By: Admin: 12/31/24 23:15 Dose: 200 mls/hr Documented By: NEETA Sodium Chloride (Normal Saline 0.9%) 1,000 mls @ 1,000 mls/hr IV BOLUS ONE Stop: 01/01/25 01:38 Last Infusion: 01/01/25 01:56 Dose: Infused Documented By: Admin: 01/01/25 00:50 Dose: 1,000 mls/hr Documented By: NEETA Ondansetron HCl (Ondansetron 4 Mg/2 Ml Inj) 4 mg IV NOW ONE Stop: 12/31/24 23:03 Last Admin: 12/31/24 23:15 Dose: 4 mg Documented By: NEETA Vital Signs Vital signs: Vital Signs - 8 hr 12/31/24 22:24 12/31/24 22:25 12/31/24 22:27 Temperature 99 F Pulse Rate 121 H 122 H 121 H Respiratory Rate 16 18 Blood Pressure 170/79 H Pulse Oximetry 97 91 91 Oxygen Delivery Method Room Air 12/31/24 22:27 12/31/24 22:30 12/31/24 22:30 Temperature Pulse Rate 121 H Respiratory Rate 16 Blood Pressure 168/74 H 158/70 H Pulse Oximetry 91 Oxygen Delivery Method 12/31/24 23:00 12/31/24 23:00 01/01/25 00:00 Temperature Pulse Rate 116 H 104 H Respiratory Rate 23 19 Blood Pressure 171/77 H Pulse Oximetry 95 92 Oxygen Delivery Method 01/01/25 00:30 01/01/25 01:00 01/01/25 01:30 Temperature Pulse Rate 104 H 105 H 101 H Respiratory Rate 21 22 19 Blood Pressure Pulse Oximetry 92 93 92 Oxygen Delivery Method 01/01/25 01:32 01/01/25 02:00 01/01/25 02:29 Temperature Pulse Rate 101 H 104 H Respiratory Rate 19 30 H Blood Pressure 160/73 H Pulse Oximetry 93 94 Oxygen Delivery Method Room Air 01/01/25 02:30 Temperature Pulse Rate Respiratory Rate Blood Pressure 148/69 H Pulse Oximetry Oxygen Delivery Method Medical Decision Making Lab Data Lab results reviewed: Yes I reviewed the patient's lab results. Lab results narrative: White blood cell count 76026 elevated, hemoglobin 15, platelets adequate. Glucose 165. Normal renal function. Electrolytes unremarkable. Liver functions normal. CPK not elevated. Urinalysis suspicious for infection, many bacteria inflammatory cells, urine culture requested. 12/31/24 22:15 12/31/24 22:15 Labs: Lab Results 12/31/24 12/31/24 Range/Units 22:15 22:40 WBC 19.0 H (4.5-11.0) X10^3/uL RBC 5.05 (4.0-5.2) X10^6/uL Hgb 15.1 (12.0-16.0) g/dL Hct 45.3 (36-46) % MCV 89.8 (80-100) fL MCH 29.9 (26-34) PG MCHC 33.3 (30-36) % RDW 14.5 (11.6-14.8) % Plt Count 400 (150-400) X10^3/uL Neut % (Auto) 96.1 H (50-75) % Lymph % (Auto) 1.7 L (25-40) % [place] % (Auto) 1.8 L (3-14) % Eos % (Auto) 0.1 L (2-4) % Baso % (Auto) 0.3 (0-2) % Neut # (Auto) 87526 H (6326-9498) /uL Lymph # (Auto) 300 L (6860-6372) /uL [place] # (Auto) 300 (0-900) /uL Eos # (Auto) 0 (0-450) /uL Baso # (Auto) 100 (0-100) /uL Sodium 136 L (137-145) mmol/L Potassium 3.9 (3.4-5.1) mmol/L Chloride 104 (98-107) mmol/L Carbon Dioxide 24 (22-32) mmol/L BUN 8 (7-17) mg/dL Creatinine 0.65 (0.52-1.04) mg/dL Estimated GFR > 60 (>60) mL/min BUN/Creatinine Ratio 12.3 (6-22) Glucose 165 H (70-99) mg/dL Lactate 1.3 (0.7-2.1) mmol/L Calcium 10.3 H (8.4-10.2) mg/dL Total Bilirubin 0.7 (0.2-1.3) mg/dL AST 31 (14-36) IU/L ALT 39 H (<35) IU/L Alkaline Phosphatase 107 (38-126) U/L Total Creatine Kinase 25 L (30-135) U/L Troponin I < 0.012 (0.01-0.034) ng/mL Total Protein 7.5 (6.3-8.2) g/dL Albumin 4.2 (3.5-5.0) g/dL Globulin 3.3 (1.7-4.1) g/dL Albumin/Globulin Ratio 1.3 (1.0-2.8) Procalcitonin 0.077 (<0.5) ng/mL Urine RBC 0-1/hpf (0-5/HPF) Urine WBC 30-100/hpf H (0-5/HPF) Ur Squamous Epith Cells 5-10 /hpf H (0-5/HPF) Urine Bacteria Many (>30) H (None) Urine Mucus 1+ H (Negative) Ur Culture Indicated? Specimen cultured Vol Urine Centrifuged 10ml (spun) Urine Dip Bedside Urine Glucose Negative Bedside Urine Bilirubin - Negative Bedside Urine Ketone ++ 40 Urine Specific Bayard 1.010 Bedside Urine Occult Blood - Negative Bedside Urine pH 7.5 Bedside Urine Protein - Negative Bedside Urine Urobilinogen - Negative Bedside Urine Nitrite - Negative Bedside Urine Leukocytes +/- 15 Esterase Point of care testing: Urine Dip Bedside Urine Glucose Negative Bedside Urine Bilirubin - Negative Bedside Urine Ketone ++ 40 Urine Specific Bayard 1.010 Bedside Urine Occult Blood - Negative Bedside Urine pH 7.5 Bedside Urine Protein - Negative Bedside Urine Urobilinogen - Negative Bedside Urine Nitrite - Negative Bedside Urine Leukocytes +/- [address] scan - abdomen/pelvis: Radiologist's Impression: [address] [address] [address] Scan Report Signed Patient: Marquita Duong MR#: [id number] : 1960 Acct:[id number] Age/Sex: 64 / F Date of Service: 12/31/24 Loc: ED Accession Number: [id number] Procedure: CT abdomen pelvis wo con Ordering Provider: French Lin MD PROCEDURE: CT ABDOMEN PELVIS WO CON INDICATIONS: UTI, antibiotics, worse, eval for ureteral stone/pus TECHNIQUE: Axial sections were acquired from the lung bases to the pubic symphysis. Coronal and sagittal reformats were performed. For radiation dose reduction, the following was used: automated exposure control, adjustment of mA and/or kV according to patient size. COMPARISON: [facility], CT, CT KUB, 10/07/2022, 12:37. FINDINGS: Image quality: Diagnostic. Lower Chest: Bibasilar dependent atelectasis. URINARY: Right Kidney: No calculus. Moderate hydronephrosis. Right Ureter: Mild hydroureter. No obstructing calculus. Left Kidney: Nonobstructing 3 mm calculus at the inferior pole. Mild hydronephrosis. Left Ureter: No hydroureter. Bladder: Few small bladder diverticula are present. Small focus of gas at the nondependent portion of the bladder. Calcified lesion is seen at the right lateral bladder wall. ABDOMEN: Liver: No contour-deforming solid mass. Gallbladder: No radiopaque gallstones or wall thickening. Biliary ducts: No biliary dilation. Pancreas: No ductal dilation. Spleen: Size is within normal limits. Adrenal Glands: No adrenal nodules. Stomach and Bowel: Normal colonic caliber, without significant wall thickening. Normal appendix. Small bowel loops are unremarkable.1 Peritoneum: No abnormal intraperitoneal fluid. No free air. Ventral Wall: No hernia. Abdominal Nodes: No enlarged retroperitoneal or mesenteric lymph nodes. Vessels: Aorta and inferior vena cava are normal in size. PELVIS: Pelvic Organs: Unremarkable. Pelvic Nodes: Unremarkable. Miscellaneous: No inguinal hernias are seen. Bones: Unremarkable. IMPRESSION: 1. Small focus of gas in the bladder may be secondary to infection with a gas-forming organism or recent instrumentation. 2. Moderate right and mild left hydronephrosis without an obstructing calculus. Findings may be secondary to ascending infection. No suspicious perinephric stranding. 3. Nonobstructing 3 mm left renal calculus. No ureteral calculus. Approved by: Sterling Rangel M.D. on 01/01/2025 at 0:29 MDM Narrative Medical decision making narrative: 64-year-old female with history of UTIs, prior kidney stones, has ongoing nausea with nonbloody emesis, day 2 of nitrofurantoin for clinic diagnosis of urinary tract infection. Clinic visit was a few days ago, urine culture apparently grew out later, then she started antibiotics only 2 days ago. No fevers or chills. Afebrile, sirs screen negative. History of kidney stones. Consider evaluation to rule out complex urinary tract infection, or alternate diagnosis. History of iodine allergy. CT abdomen and pelvis noncontrast imaging ordered. IV fluid bolus, IV antiemetic, IV ceftriaxone. Records review. 12/28/2024 urine culture results. Showed >[id number] colonies Klebsiella pneumoniae. Resistant to ampicillin. Sensitive to all other agents tested, including cephalosporins, quinolones, Bactrim, aminoglycosides, imipenem, nitrofurantoin. CT abdomen and pelvis shows nonobstructing renal stone, no ureteral stones, however there is bilateral hydro ureteral nephrosis, in absence of obstructing stone suspicious for pyelonephritis, no abscess. See radiology report. Advised stopping nitrofurantoin. IV ceftriaxone given. We will treat for broader spectrum upper tract urinary infection with cefdinir, prescription for 10 day course sent to her pharmacy. She expressed understanding of this plan. Transfer back to [facility], where she can have dispensation of cefdinir antibiotic. Patient recalled that her care center uses [facility] in [place], they are to address his available, patient is not sure which were use, so prescription 10 day course cefdinir sent to both pharmacies. Bed-bound. Discharged back to [facility] via EMS BLS transport. Discharge Plan Departure Patient Disposition: Home Clinical Impression: Pyelonephritis Activity Restrictions/Additional Instructions: History of urine infections, history of kidney stones. Recent diagnosis of urinary tract infection a few days ago, by follow up positive urine culture, starting nitrofurantoin antibiotic a couple of days ago, having nausea and vomiting. Fast heart rate on triage noted. Abdomen benign without tenderness. Concern for complicated urine infection such as obstructing stone or formation of kidney or other abscess, or alternate diagnosis. Urinalysis here was suspicious also for urine infection. CT scanning abdomen and pelvis did not show any stones within the ureter, did show nonobstructing stone on 1 kidney, no abscess description, changes suspicious for kidney infections both kidney. Copy of the x-ray report discussed and provided for discharge. We discussed watching in the nitrofurantoin to a stronger antibiotic that it is better for kidney infection clearance. IV ceftriaxone given in the emergency department. We will send prescription for cefdinir antibiotic to take for 10 day course, in place of your nitrofurantoin. Recheck symptoms with your regular doctor early this next week. And consider urinalysis repeat after the course of treatment, to document clearance of the infection. Return earlier to this/nearest emergency department for any change worsening symptoms or any concerns prior. Prescriptions: New cefdinir 300 mg capsule 300 mg PO BID 10 Days Qty: 20 0RF cefdinir 300 mg capsule 300 mg PO BID 10 Days Qty: 20 0RF Referrals: Ian Gooden FNP-C [Primary Care Provider] - Stand Alone Forms: Patient Portal/API/Survey
[2024-12-31 23:00] VITALS: BP 171/77; PULSE 116; RESP 23; O2SAT 95
--- NOTE | 2024-12-31 23:01 | DI.CT.S_ITS ---
PROCEDURE: CT ABDOMEN PELVIS WO CON INDICATIONS: UTI, antibiotics, worse, eval for ureteral stone/pus TECHNIQUE: Axial sections were acquired from the lung bases to the pubic symphysis. Coronal and sagittal reformats were performed. For radiation dose reduction, the following was used: automated exposure control, adjustment of mA and/or kV according to patient size. COMPARISON: Merged With [facility], CT, CT KUB, 10/07/2022, 12:37. FINDINGS: Image quality: Diagnostic. Lower Chest: Bibasilar dependent atelectasis. URINARY: Right Kidney: No calculus. Moderate hydronephrosis. Right Ureter: Mild hydroureter. No obstructing calculus. Left Kidney: Nonobstructing 3 mm calculus at the inferior pole. Mild hydronephrosis. Left Ureter: No hydroureter. Bladder: Few small bladder diverticula are present. Small focus of gas at the nondependent portion of the bladder. Calcified lesion is seen at the right lateral bladder wall. ABDOMEN: Liver: No contour-deforming solid mass. Gallbladder: No radiopaque gallstones or wall thickening. Biliary ducts: No biliary dilation. Pancreas: No ductal dilation. Spleen: Size is within normal limits. Adrenal Glands: No adrenal nodules. Stomach and Bowel: Normal colonic caliber, without significant wall thickening. Normal appendix. Small bowel loops are unremarkable.1 Peritoneum: No abnormal intraperitoneal fluid. No free air. Ventral Wall: No hernia. Abdominal Nodes: No enlarged retroperitoneal or mesenteric lymph nodes. Vessels: Aorta and inferior vena cava are normal in size. PELVIS: Pelvic Organs: Unremarkable. Pelvic Nodes: Unremarkable. Miscellaneous: No inguinal hernias are seen. Bones: Unremarkable. IMPRESSION: 1. Small focus of gas in the bladder may be secondary to infection with a gas-forming organism or recent instrumentation. 2. Moderate right and mild left hydronephrosis without an obstructing calculus. Findings may be secondary to ascending infection. No suspicious perinephric stranding. 3. Nonobstructing 3 mm left renal calculus. No ureteral calculus. Approved by: Sterling Rangel M.D. on 01/01/2025 at 0:29
[2024-12-31 23:02] LABS: Bacteria Urine Many (>30); Squamous Epithelial Cell Urine 5-10 /HPF (0-5/HPF); Urine Volume 10mL (spun); WBC Urine 30-100/HPF (0-5/HPF)
[2024-12-31 23:03] LABS: Culture Indicated Urine Specimen Cultured; Mucus Urine 1+ (Negative); RBC Urine 0-1/HPF (0-5/HPF)
[2024-12-31 23:04] LABS: Troponin I < 0.012 ng/mL (0.01-0.034)
[2024-12-31 23:09] LABS: Procalcitonin 0.077 ng/mL (<0.5)
[2024-12-31] MEDS: ONDANSETRON 4 MG/2 ML INJ IV (23:15)
[2024-12-31] MEDS: cefTRIAXone 1,000 MG in SODIUM CHLORIDE 0.9% 100 ML 200 MG IV (23:15)
[2025-01-01] VITALS (8 sets, daily range): BP systolic 148–160; BP diastolic 69–73; PULSE 101–105; RESP 19–30; O2SAT 92–94
[2025-01-01] MEDS: SODIUM CHLORIDE 0.9% 1,000 ML 1000 ML IV (00:50)
== END 2025-01-01 02:38 | disposition home or self-care (01) ==
PROVIDERS: Emergency Provider Emergency Medicine; PCP Nurse Practitioner
DX: N13.6 Pyonephrosis (principal); B96.1 Klebsiella pneumoniae [K. pneumoniae] as the cause of diseases classified elsewhere
CPT/HCPCS: 36415; 74176; 80053; 81003; 81015; 82550; 83605; 84145; 84484; 85025; 87077; 87086; 87186; 93005; 93010; 96361; 96365; 96375; 99284; J0696; J2405

== ENCOUNTER → 2025-07-13 13:26 | Outpatient (ROUT) | payer MEDICARE, OTHER, SELFPAY ==
[2025-07-13 13:34] LABS: Appearance Urine UA CLOUDY; Bilirubin Urine UA NEGATIVE (NEGATIVE); Color Urine UA YELLOW; Glucose Urine UA NEGATIVE (Negative); Ketones Urine UA NEGATIVE (NEGATIVE); Leukocyte Esterase Urine UA 2+ (NEGATIVE); Nitrite Urine UA POSITIVE (Negative); Occult Blood Urine UA NEGATIVE (Negative); Protein Urine UA NEGATIVE (Negative); Specific Gravity Urine UA 1.015 (1.000-1.035); Urobilinogen Urine UA 0.2 E.U./dL (0.2)
[2025-07-13 13:35] LABS: pH Urine UA 7.0 (4.5-8.0)
[2025-07-13 13:43] LABS: Culture Indicated Urine Specimen Cultured
== END ==
LOC: LAB 13:27
PROVIDERS: PCP Nurse Practitioner; Visit Provider Student in an Organized Health Care Education/Training Program
DX: N39.0 Urinary tract infection, site not specified (principal)
CPT/HCPCS: 81001; 87077; 87086

== ENCOUNTER → 2025-08-02 12:51 | Outpatient (ROUT) | payer MEDICARE, OTHER, SELFPAY ==
[2025-08-02 12:58] LABS: Appearance Urine UA CLOUDY; Bilirubin Urine UA NEGATIVE (NEGATIVE); Color Urine UA YELLOW; Glucose Urine UA NEGATIVE (Negative); Ketones Urine UA NEGATIVE (NEGATIVE); Leukocyte Esterase Urine UA 2+ (NEGATIVE); Nitrite Urine UA POSITIVE (Negative); Occult Blood Urine UA 3+ (Negative); Protein Urine UA 1+ (Negative); Specific Gravity Urine UA 1.025 (1.000-1.035); Urobilinogen Urine UA 0.2 E.U./dL (0.2)
[2025-08-02 13:02] LABS: pH Urine UA 6.0 (4.5-8.0)
[2025-08-02 13:10] LABS: Culture Indicated Urine Specimen Cultured
== END ==
PROVIDERS: PCP Nurse Practitioner; Visit Provider Student in an Organized Health Care Education/Training Program
DX: N39.0 Urinary tract infection, site not specified (principal)
CPT/HCPCS: 81001; 87077; 87086